=== PATIENT | female | born 1965 | race Caucasian/White ===

== ENCOUNTER 2024-11-25 18:07 | Emergency (ER) | payer MEDICAID, SELFPAY ==
[2024-11-25] VITALS (7 sets, daily range): BP systolic 135–179; BP diastolic 75–98; PULSE 72–87; RESP 12–19; TEMP 36.7–36.8; O2SAT 96–100; BMI 48.7
[2024-11-25 20:22] LABS: Basophils % 0.5 %; Eosinophils # 0.2 10^3/uL (0.0-0.8); Eosinophils % 2.6 %; Hematocrit 24.1 % (36-47); Lymphocytes # 1.9 10^3/uL (0.8-4.8); Lymphocytes % 23.8 %; Mean Corpuscular HGB Conc 24.1 g/dL (30-55); Mean Corpuscular Volume 70.7 fl (85-98); Mean Platelet Volume 11.4 fL (7.4-10.4); Monocytes # 0.8 10^3/uL (0.2-0.9); Monocytes % 9.3 %; Neutrophils # 5.08 10^3/uL (1.8-7.7); Neutrophils % 63.2 %; Nucleated Red Blood Cells % 0.2 %; Platelet Count 301 10^3/cmm (157-399); Red Blood Count 3.41 10^6/uL (3.85-5.65); Red Cell Distribution Width 19.3 % (12.1-15.1); White Blood Count 8.04 10^3/uL (3.29-11.43)
--- NOTE | 2024-11-25 20:39 | ED_ITS ---
HPI - Recheck/Abnormal Lab/Rx 2 General: Chief Complaint: Recheck/Abnormal Lab/Rx Stated Complaint: [place] sent for fluids Time Seen by Provider: 11/25/24 20:34 History of Present Illness: Patient sent in by her PCP due to concerns for anemia. Patient her lab drawn earlier today and her hemoglobin is 5.8. Patient thought she was in menopause 5 years ago when she did not have a period for over 1 year. But then her periods started coming back irregularly but heavy. Patient's had heavy periods at least the last 6 months consistently with bleeding for last 30 days. Patient does states she gets tired fatigued winded easily. Patient has no other complaints or concerns at this time. Related Data Previous Rx's ?Medication ?Instructions ?Recorded ferrous sulfate 324 mg (65 mg 324 mg PO DAILY #90 tabs 11/26/24 iron) tablet,delayed release Allergies Allergy/AdvReac Type Severity Reaction Status Date / Time No Known Allergies Allergy Verified 11/25/24 18:11 Review of Systems 2 General: Reports: 10 or more systems reviewed and unremarkable except in HPI and below [facility] ED 2 Female Reproductive History: Date of last menstrual period: 11/13/24 Physical Exam 2 Const: COMMON NORMALS: no acute distress, average body habitus, patient oriented x3, no limitations, healthy appearing, alert and well nourished HENMT: COMMON NORMALS: normocephalic, atraumatic, hearing grossly normal bilaterally, external ears normal, Normal external nose present, moist oral mucous membranes and oropharynx normal HEAD & SCALP: normocephalic and atraumatic NOSE: Normal external nose present EXTERNAL EAR: Yes external ears normal Eye: COMMON NORMALS: Equal, round and reactive pupils present, EOMs intact bilaterally, conjunctivae normal and no scleral icterus CONJUNCTIVA: Yes conjunctivae normal PUPIL: Yes Equal, round and reactive pupils present Neck/C-Spine: COMMON NORMALS: full ROM, no lymphadenopathy, supple, no meningeal signs, no JVD and Thyroid normal THYROID: Thyroid normal Chest: COMMONS NORMALS: normal inspection of the chest and normal palpation of entire chest wall Resp: COMMON NORMALS: normal respiratory effort, No retractions, No use of accessory muscles and clear to auscultation bilaterally AUSCULTATION: clear to auscultation bilaterally Cardio: COMMON NORMALS: no JVD, regular rate, regular rhythm, S1 normal heart sound present, S2 normal heart sound present, No gallops present (Cardio), No clicks present (Cardio), No murmurs present (Cardio) and No rub (Cardio) R ATE: regular rate RHYTHM: regular rhythm HEART SOUNDS: S1 normal heart sound present and S2 normal heart sound present GI: COMMON NORMALS: Normal to inspection, nondistended, normoactive bowel sounds present, Soft to palpation, non-tender, No hepatosplenomegaly present and no masses PALPATION: Yes Soft to palpation and Yes No hepatosplenomegaly present Neuro: COMMON NORMALS: patient oriented x3 SENSORIUM/ORIENTATION: Yes alert MENINGEAL SIGNS: Yes no meningeal signs Course 2 Vital Signs: Vital signs: Vital Signs Temperature 98.2 F 11/26/24 00:10 Pulse Rate 74 11/26/24 00:41 Respiratory Rate 15 11/26/24 00:41 Blood Pressure 147/99 11/26/24 00:41 Pulse Oximetry 98 11/26/24 00:41 Oxygen Delivery Me thod Room Air 11/26/24 00:41 MDM - Recheck/Abnormal Lab/Rx Medical Decision Making Patient hemoglobin come back at 5.8, patient received 2 units of packed red blood cells. Iron indices shows patient is iron deficient 2 patient will be placed on iron, referred to PAPER SAMPLE CLERK for heavy postmenopausal bleeding. Medical Records I reviewed the patient's medical records. Lab Data I reviewed the patient's lab results. 11/25/24 19:54 Laboratory Results WBC 8.04 10^3/uL (3.29-11.43) 11/25/24 19:54 RBC 3.41 10^6/uL (3.85-5.65) L 11/25/24 19:54 Hgb 5.80 g/dL (11.27-16.99) L* 11/25/24 19:54 Hct 24.1 % (36-47) L 11/25/24 19:54 MCV 70.7 fl (85-98) L 11/25/24 19:54 MCH 17.0 pg (27-33) L 11/25/24 19:54 MCHC 24.1 g/dL (30-55) L 11/25/24 19:54 RDW 19.3 % (12.1-15.1) H 11/25/24 19:54 Plt Count 301 10^3/cmm (157-399) 11/25/24 19:54 MPV 11.4 fL (7.4-10.4) H 11/25/24 19:54 Neut % (Auto) 63.2 % 11/25/24 19:54 Lymph % (Auto) 23.8 % 11/25/24 19:54 [place] % (Auto) 9.3 % 11/25/24 19:54 Eos % (Auto) 2.6 % 11/25/24 19:54 Baso % (Auto) 0.5 % 11/25/24 19:54 Neut # (Auto) 5.08 10^3/uL (1.8-7.7) 11/25/24 19:54 Lymph # (Auto) 1.9 10^3/uL (0.8-4.8) 11/25/24 19:54 [place] # (Auto) 0.8 10^3/uL (0.2-0.9) 11/25/24 19:54 Eos # (Auto) 0.2 10^3/uL (0.0-0.8) 11/25/24 19:54 Baso # (Auto) 0.0 10^3/uL (0.0-0.1) 11/25/24 19:54 Nucleated RBC % (auto) 0.2 % 11/25/24 19:54 Nucleated RBCs # 0.0 /100WBC 11/25/24 19:54 Iron 14 ug/dL (37-145) L 11/25/24 19:54 TIBC 452 mcg/dl 11/25/24 19:54 % Saturation 3.0 % (20-50) L 11/25/24 19:54 Unsat Iron Binding 438 ug/dL (112-347) H 11/25/24 19:54 Ferritin 11 ng/mL (15-150) L 11/25/24 19:54 Blood Type A Positive 11/25/24 20:40 Rho(D) Type Rh positive 11/25/24 20:40 Antibody Screen Negative 11/25/24 20:40 Crossmatch See Detail 11/25/24 20:40 All radiology interpretation(s) finalized by discharge Discharge Plan Discharge Patient Disposition: Home Clinical Impression: Anemia requiring transfusions, DUB (dysfunctional uterine bleeding) Iron (Fe) deficiency anemia Qualifiers: Iron deficiency anemia type: chronic blood loss Qualified Code(s): D50.0 - Iron deficiency anemia secondary to blood loss (chronic) Condition: Stable Prescriptions: New ferrous sulfate 324 mg (65 mg iron) tablet,delayed release (DR/EC) 324 mg PO DAILY Qty: 90 0RF Discharge Orders: Discharge ED (Routine); Ordered 11/26/24 Ordered By: Ok Hawkins Patient Instructions: Anemia (ED), Blood Transfusion (DC), Abnormal (Dysfunctional) Uterine Bleeding (ED) Activity Restrictions/Additional Instructions: You are found to be severely anemic, your cells are small and your iron level is low. You will be prescribed iron to take to boost these levels. You have been transfused 2 units of blood. He had been referred to PAPER SAMPLE CLERK to help evaluate the cause of your substantial bleeding. The quality management coordinator should be calling you during business hours to arrange just follow-up. Please follow-up with family practice within next 7 days for reevaluation and rechecking of your hemoglobin. Thank you for choosing [facility] for your healthcare needs today. Please realize that you were seen in the emergency department and that we are providing you with an emergency medical screening exam and this may not be a complete and all exclusive of all testing and/or medical workup we may need to determine your element or severity of your illness. It is very important that you follow-up as instructed with your primary care provider or specialist for the additional evaluation and to discuss your medical treatment plan. You may return to the emergency department should you have concerns or if your condition changes or worsens in any way. Print Language: Danish Coding Level of Care Code ED Manager Primary Care for Savanah Luna
[2024-11-25 21:02] LABS: Ferritin 11 ng/mL (15-150); Iron 14 ug/dL (37-145); Total Iron Binding Capacity 452 mcg/dl; Unsaturated Iron Binding 438 ug/dL (112-347)
--- NOTE | 2024-11-25 22:43 | PC.NURSE ---
blood verified with second nurse, diane
[2024-11-26] VITALS (10 sets, daily range): BP systolic 132–166; BP diastolic 70–99; PULSE 71–80; RESP 14–22; TEMP 36.6–36.9; O2SAT 91–98
--- NOTE | 2024-11-26 00:57 | PC.NURSE ---
Assumed care from Vinod NEAL at this time.
--- NOTE | 2024-11-26 01:47 | PC.NURSE ---
Blood transfusion verified with Effie NEAL.
[2024-11-26] MEDS: sodium chloride 0.9% 100 mL Bag 50 ML IV (01:51)
--- NOTE | 2024-11-26 08:51 | DCPLANNER ---
messaged womens for er f/u
== END 2024-11-26 03:38 | disposition home or self-care (01) ==
PROVIDERS: Emergency Medicine; Emergency Provider Emergency Medicine
DX: D64.9 Anemia, unspecified (principal); N93.8 Other specified abnormal uterine and vaginal bleeding; D50.0 Iron deficiency anemia secondary to blood loss (chronic)
CPT/HCPCS: 36415; 36430; 82728; 83540; 83550; 85025; 86850; 86900; 86920; 99284; P9016

== ENCOUNTER 2024-12-06 10:26 | Outpatient (CLI) | payer MEDICAID, SELFPAY ==
--- NOTE | 2024-12-06 10:32 | US_ITS ---
WS: [id number] Exam: US pelvic complete* [id number] Date/Time of Exam: 12/06/2024 10:54 AM Reason For Exam: DYSFUNCTIONAL UTERINE BLEEDING There is mild uterine enlargement. The uterus measures 11.5 cm in greatest length and approximately 6.7 cm in transverse dimension. The endometrium is abnormally thickened with heterogeneous echotexture. The possibility of endometrial neoplasm must be considered and biopsy would be indicated. The ovari es are unremarkable as visualized. The LEFT ovary measures 1.9 x 1 x 1.5 cm. The RIGHT ovary measures 1.6 x 1.1 x 1.9 cm. Endometrial thickness about 2 cm. US/US pelvic complete* [id number] IMPRESSION: 1. Abnormally thickened heterogeneous endometrium. Endometrial neoplasm is not excluded and biopsy would be indicated. 2. Mild uterine enlargement. 3. No adnexal mass or abnormal free fluid collection in the pelvis.
== END 2024-12-06 10:27 | disposition home or self-care (01) ==
PROVIDERS: PCP Family Medicine; Visit Provider Family Medicine
DX: N93.8 Other specified abnormal uterine and vaginal bleeding (principal); R93.89 Abnormal findings on diagnostic imaging of other specified body structures; N85.2 Hypertrophy of uterus
CPT/HCPCS: 76856

== ENCOUNTER 2024-12-30 05:56 | Day surgery (SDC) | payer MEDICAID, SELFPAY ==
[2024-12-30] VITALS (8 sets, daily range): BP systolic 125–179; BP diastolic 75–110; PULSE 86–103; RESP 14–18; TEMP 36.3–36.6; O2SAT 92–100; BMI 49.5
--- NOTE | 2024-12-30 05:29 | P.HP_ITS ---
Same Day Surgery H&P Indication for Procedure/HPI DATE OF PROCEDURE: December 30, 2024 CHIEF COMPLAINT/INDICATIONFOR SURGICAL PROCEDURE: abnormal uterine bleeding PREOP DIAGNOSIS: abnormal uterine bleeding PLANNED PROCEDURE: Operation Date: 12/30/24 08:10 Proposed Procedures p Hysteroscopy w/ Endometrial Sampling 43955, N95.0(Not Applicable) - Rafy Xavier am, MD s Poylpectomy(Not Applicable) - Rafy Garcia MD 59 y.o. with daily bleeding x four years Medications/Allergies* Allergies/Adverse Reactions Allergy/AdvReac Type Severity Reaction Status Date / Time No Known Allergies Allergy Verified 12/22/24 09:44 Pertinent History/Comorbid Conditions* Family History (Updated 12/22/24 @ 09:32 by Sary Braga RN) Diabetes Sister Hypertension Father Stroke Father Social History Smoking and tobacco/nicotine status: never used tobacco/nicotine Pertinent Exam Findings alert, oriented x 3, clear to auscultation bilaterally and regular rate & rhythm Pertinent Data Pelvic sono 12-06-24 uterus 11.5 x 6.7 cm Endometrium thickened and heterogeneous Normal ovaries Recommendations Surgery/Procedure today Coding Level of Care Code Acute Code for Chg Fwd Time Spent (min) 30
[2024-12-30] MEDS: sodium chloride 0.9% 1,000 ML 30 ML IV (06:46)
--- NOTE | 2024-12-30 06:51 | ANES.PREANE2 ---
Pre-Anesthetic Assessment Height/Weight: Height 1.68 m Weight 139.253 kg Temp Pulse Resp BP Pulse Ox O2 Del Method 97.9 F 91 17 179/110 95 Room Air 12/30/24 06:30 12/30/24 06:30 12/30/24 06:30 12/30/24 06:30 12/30/24 06:30 12/30/24 06:30 Preop Diagnosis: abnormal uterine bleeding Operation Date: 12/30/24 08:10 Proposed Procedures p Hysteroscopy w/ Endometrial Sampling 32411, N95.0(Not Applicable) - Rafy Garcia MD s Poylpectomy(Not Applicable) - Rafy Garcia MD Familial anesthetic complications: None Was Beta Ericka taken within 24 hours: N/A Was Clonidine taken within 24 hours: N/A Last intake: Intake Last Liquid Date 12/29/24 Last Liquid Time 00:00 Last Solid Date 12/29/24 Last Solid Time 15:00 Social No alcohol and No tobacco Exam alert, oriented x 3, clear to auscultation bilaterally and regular rate & rhythm Airway Submandibular: Other (excess tissue) Mallampati: Class IV Dentition: chipped (molar) CV/HEM Anemia (s/p 2 units last month and iron supplements, states she is feeling better since, less fatigue) Metabolic Morbid Obesity Anesthetic Plan ASA status: 2 Anesthesia: General Risk of > 500 ml blood loss (7ml/kg in children): No Medications/Allergies Home Medications ?Medication ?Instructions ?Recorded ?Confirmed ?Last Taken ?Type ferrous sulfate 324 mg (65 mg 324 mg PO DAILY #90 tabs 11/26/24 12/29/24 12/29/24 Rx iron) tablet,delayed release Allergies Allergy/AdvReac Type Severity Reaction Status Date / Time No Known Allergies Allergy Verified 12/22/24 09:44 Current Medications Generic Name Dose Route Start Last Admin Trade Name Freq PRN Reason Stop Dose Admin Sodium Chloride 1,000 mls @ 30 mls/hr 12/30/24 06:15 12/30/24 06:46 Sodium Chloride 0.9% IV 12/31/24 06:14 30 mls/hr .Q24H NABIL Administration PFSH Anesthesia Family History Father Hypertension Stroke Sister Diabetes Social History Smoking and tobacco/nicotine status: never used tobacco/nicotine Data Anesthesia Cardiac Studies: No Data to Display
[2024-12-30 07:10] LABS: Basophils % 0.7 %; Eosinophils # 0.1 10^3/uL (0.0-0.8); Eosinophils % 1.8 %; Hematocrit 31.3 % (36-47); Lymphocytes # 1.2 10^3/uL (0.8-4.8); Lymphocytes % 21.8 %; Mean Corpuscular HGB Conc 26.2 g/dL (30-55); Mean Corpuscular Hemoglobin 19.7 pg (27-33); Mean Corpuscular Volume 75.1 fl (85-98); Mean Platelet Volume 10.5 fL (7.4-10.4); Monocytes # 0.5 10^3/uL (0.2-0.9); Monocytes % 8.9 %; Neutrophils # 3.73 10^3/uL (1.8-7.7); Neutrophils % 66.6 %; Nucleated Red Blood Cells % 0 %; Platelet Count 273 10^3/cmm (157-399); Red Blood Count 4.17 10^6/uL (3.85-5.65); Red Cell Distribution Width 22.1 % (12.1-15.1)
--- NOTE | 2024-12-30 07:30 | W.PM.OPSUD ---
Surgery/Procedure H&P Update DATE OF PROCEDURE: December 30, 2024 DATE H&P PERFORMED: 12/17/24 H&P UPDATE INFORMATION: I have reviewed H&P completed within last 30 days, I have examined patient prior to procedure and No changes to prior documentation PREOP DIAGNOSIS: abnormal uterine bleeding PLANNED PROCEDURE: Operation Date: 12/30/24 08:10 Proposed Procedures p Hysteroscopy w/ Endometrial Sampling 13932, N95.0(Not Applicable) - Rafy Garcia MD s Poylpectomy(Not Applicable) - Rafy Garcia MD
--- NOTE | 2024-12-30 08:40 | PM.OP ---
Operative Report Date of procedure: December 30, 2024 Pre-op diagnosis: abnormal uterine bleeding Post-op diagnosis: same Post-op findings: Cervix high up in vaginal canal Unable to reach with hysteroscope Unable to perform hysteroscopy Uterus sounded to 8 cm Small amount of endometrial tissue obtained using curette Procedure done: Curettage of uterus Implants: none Specimens removed/disposition: endometrial curettings, sent to pathology Surgeon: Rafy Garcia MD Anesthesia: General Estimated blood loss (mL): 0 Complications: none Findings: Cervix high up in vaginal canal Unable to reach with hysteroscope Unable to perform hysteroscopy Uterus sounded to 8 cm Small amount of endometrial tissue obtained using curette Condition: stable Disposition: PACU Brief History: 59 y.o. with abnormal uterine bleeding Procedure: Informed consent signed. Patient was taken to the operating room. Anesthesia was induced. Patient was placed in dorsolithotomy position, prepped and draped for hysteroscopy. A bivalve speculum was placed in the vagina. Due to the patient?s body habitus, the cervix was noted to be high up in the vaginal canal. The cervix could not be reached with the hysteroscope. The cervix was dilated with Hegar dilators. The uterus was sounded to 8 cm. A sharp curette was then used to obtain endometrial curettings. Small amount of endometrial tissue was obtained and sent to pathology. All instruments were then removed. No bleeding was seen. The patient was placed supine and awakened, then taken to PACU in good condition. Postop condition: stable EBL: none Sponge and instruments counts were normal x 2 Complications: none
[2024-12-30 08:56] LABS: OR HCG Qualitative Urine Negative (Negative)
[2024-12-30] MEDS: ketorolac 30 mg/mL INJ IVP (10:10)
--- NOTE | 2024-12-30 10:40 | ANE.PACU2 ---
Inpatient post-anesthesia follow up: Airway intact: Yes Vital signs: Temperature 97.4 F Pulse Rate 89 Respiratory Rate 17 Blood Pressure 139/83 Pulse Oximetry 98 Oxygen Delivery Me thod Room Air Oxygen Flow Rate 8 Fraction of Inspir ed Oxygen Hydration adequate: Yes Nausea and vomiting: No Pain level: 1 Mental status: Baseline
== END 2024-12-30 10:40 | disposition home or self-care (01) ==
PROVIDERS: Anesthesiology; PCP Family Medicine; Visit Provider Obstetrics & Gynecology
PROC: (CPT 58120; 2024-12-30 08:00)
DX: N85.01 Benign endometrial hyperplasia (principal); N95.0 Postmenopausal bleeding; E66.01 Morbid (severe) obesity due to excess calories; Z68.42 Body mass index [BMI] 45.0-49.9, adult
CPT/HCPCS: 58120; 36415; 81025; 85025; 88305; J0330; J1100; J1885; J2250; J2405; J2704; J3010; J3490; J7030; J9999

== ENCOUNTER 2025-05-06 20:16 | Emergency (ER) | payer MEDICAID, SELFPAY ==
[2025-05-06 20:34] VITALS: BP 169/84; PULSE 109; RESP 16; TEMP 38.4; O2SAT 98; BMI 44.2
--- NOTE | 2025-05-06 21:40 | XRR_ITS ---
PROCEDURE INFORMATION: Exam: XR Chest Exam date and time: 05/06/2025 9:43 PM Age: 59 years old Clinical indication: C/O fever. Currently on chemo for endometrial cancer. TECHNIQUE: Imaging protocol: Radiologic exam of the chest. Views: 1 view. COMPARISON: No relevant prior studies available. FINDINGS: Lungs: Diffuse increase in interstitial lung markings. No focal consolidation. Pleural spaces: Unremarkable. No pleural effusion. No pneumothorax. Heart/Mediastinum: Unremarkable. No cardiomegaly. Bones/joints: Diffuse degenerative change of the visualized osseous structures XR/XR chest 1V portable [id number] IMPRESSION: Diffuse increase in interstitial lung markings without focal consolidation.
--- NOTE | 2025-05-06 21:40 | ECG_ITS ---
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 Measurements Intervals [place] Rate: 97 P: 28 CO: 179 QRS: 7 QRSD: 94 T: 29 QT: 318 QTc: 406 Interpretive Statements SINUS RHYTHM LOW QRS VOLTAGE IN PRECORDIAL LEADS [QRS DEFLECTION < 1.0 mV IN CHEST LEADS] POSSIBLE ANTERIOR MYOCARDIAL INFARCTION , PROBABLY OLD [30 ms Q WAVE IN V3/V4, OR R < 0.2 mV IN V4] No previous ECG available for comparison Electronically Signed On 05-07-2025 00:15:10 CDT by Lele Hardwick M.D. [email or web address]
--- NOTE | 2025-05-06 21:41 | W.ED.FEVER ---
HPI - Fever General: Chief Complaint: Fever Stated Complaint: Fever Chemo 04/29/25 Time Seen by Provider: 05/06/25 21:19 History of Present Illness: Generally well-appearing 59-year-old female who has received 2 rounds of chemotherapy for recent diagnosis of cancer seen for fever and flulike symptoms. She states that she felt somewhat weak and achy throughout her body today. She denies cough, congestion, headache, chest pain, shortness of breath, abdominal pain, dysuria, frequency, though she has had some loose stools. Appetite remains robust. She has not taken any antipyretic medication. Related Data Previous Rx's ?Medication ?Instructions ?Recorded ferrous sulfate 324 mg (65 mg 324 mg PO DAILY #90 tabs 11/26/24 iron) tablet,delayed release Allergies Allergy/AdvReac Type Severity Reaction Status Date / Time No Known Allergies Allergy Verified 05/06/25 20:40 [facility] ED PFSH: Family History Father Hypertension Stroke Sister Diabetes Social History Smoking and tobacco/nicotine status: never used tobacco/nicotine Physical Exam Const: COMMON NORMALS: no acute distress, patient oriented x3 and alert HENMT: COMMON NORMALS: normocephalic and atraumatic HEAD & SCALP: normocephalic and atraumatic Eye: COMMON NORMALS: Equal, round and reactive pupils present, EOMs intact bilaterally and no scleral icterus PUPIL: Yes Equal, round and reactive pupils present Resp: COMMON NORMALS: normal respiratory effort and No retractions Cardio: OTHER: tachycardic, normal rhythm GI: COMMON NORMALS: Normal to inspection, nondistended, normoactive bowel sounds present, Soft to palpation and non-tender PALPATION: Yes Soft to palpation Neuro: COMMON NORMALS: patient oriented x3 SENSORIUM/ORIENTATION: Yes alert Skin: COMMON NORMALS: no rashes or lesions noted GENERAL SKIN EXAM: no rashes or lesions noted Course Vital Signs: Vital signs: Vital Signs Temperature 99.7 F H 05/07/25 00:30 Pulse Rate 85 05/07/25 00:30 Respiratory Rate 17 05/07/25 00:30 Blood Pressure 143/75 05/07/25 00:30 Pulse Oximetry 94 05/07/25 00:30 Oxygen Delivery Me thod Nasal Cannula 05/07/25 00:30 Oxygen Flow Rate 2 05/07/25 00:30 MDM - Fever Medical Decision Making In summary, patient is a 69-year-old female undergoing chemotherapy for endometrial cancer seen for fever and tachycardia. Though she denies flank or abdominal pain, CT scan shows a 12 mm proximal stone obstructing the left ureter causing hydronephrosis as well as perinephric stranding consistent with pyelonephritis. Urinalysis shows likely cause of early sepsis. She was started on cefepime and IV fluids and observed in the emergency department over several hours. She will be transferred to [facility] for definitive management as there is no urology coverage at this facility. Patient is agreeable to the plan Lab Data 05/06/25 21:30 05/06/25 21:30 Radiology Impressions Chest X-Ray 05/06/25 21:40 IMPRESSION: Diffuse increase in interstitial lung markings without focal consolidation. Abdomen/Pelvis CT 05/07/25 01:44 IMPRESSION: 1. Left UPJ 14 mm calculus with significant obstructive features. Additional nonobstructive right nephrolithiasis. 2. Colonic diverticulosis. 3. Mild splenomegaly. 4. Left inguinal hernia with trace pelvic free fluid and trace fluid in the hernia sac. 5. Additional chronic findings as described. Laboratory Results WBC 3.45 10^3/uL (3.29-11.43) 05/06/25 21:30 RBC 4.70 10^6/uL (3.85-5.65) 05/06/25 21:30 Hgb 9.90 g/dL (11.27-16.99) L 05/06/25 21:30 Hct 34.6 % (36-47) L 05/06/25 21:30 MCV 73.6 fl (85-98) L 05/06/25 21: MCH 21.1 pg (27-33) L 05/06/25 21: MCHC 28.6 g/dL (30-55) L 05/06/25 21: RDW 22.1 % (12.1-15.1) H 05/06/25 21:30 Plt Count 153 10^3/cmm (157-399) L 05/06/25 21: MPV Not Reportable 05/06/25 21:30 Neut % (Auto) 78.6 % 05/06/25 21:30 Lymph % (Auto) 13.9 % 05/06/25 21:30 [place] % (Auto) 4.6 % 05/06/25 21: Eos % (Auto) 2.0 % 05/06/25 21:30 Baso % (Auto) 0.3 % 05/06/25 21:30 Neut # (Auto) 2.71 10^3/uL (1.8-7.7) 05/06/25 21: Lymph # (Auto) 0.5 10^3/uL (0.8-4.8) L 05/06/25 21:30 [place] # (Auto) 0.2 10^3/uL (0.2-0.9) 05/06/25 21: Eos # (Auto) 0.1 10^3/uL (0.0-0.8) 05/06/25 21: Baso # (Auto) 0.0 10^3/uL (0.0-0.1) 05/06/25: Nucleated RBC % (auto) 0 % 05/06/25 21: Nucleated RBCs # 0.0 /100WBC 05/06/25 21:30 Sodium 134 mmol/L (136-145) L 05/06/25 21: Potassium 3.6 mmol/L (3.5-5.1) 05/06/25 21: Chloride 93 mmol/L (98-107) L 05/06/25 21: Carbon Dioxide 26 mmol/L (22-29) 05/06/25 21: Anion Gap 18.6 (5-19) 05/06/25 21: BUN 20 mg/dL (6-20) 05/06/25: Creatinine 1.5 mg/dL (0.5-0.9) H 05/06/25 21:30 GFR Calculation 35.7 mL/min (90-130) L 05/06/25 21: Glucose 159 mg/dL (65-115) H 05/06/25 21: Calculated Osmolality 284 mOsm/kg (285-295) L 05/06/25 21: Lactic Acid 1.6 mmol/L (0.5-2.2) 05/06/25:30 Calcium 9.4 mg/dL (8.5-10.5) 05/06/25 21: Total Bilirubin 1.0 mg/dL (0.15-1.2) 05/06/25 21: AST 27 U/L (0-32) 05/06/25 21:30 ALT 34 U/L (0-33) H 05/06/25 21:30 Alkaline Phosphatase 72 U/L (35-105) 05/06/25 21: Total Protein 7.3 g/dL (6.6-8.7) 05/06/25 21: Albumin 4.2 g/dL (3.5-5.2) 05/06/25: Globulin 3.1 g/dL (1.3-4.6) 05/06/25 21: Urine Color Yellow (Yellow) 05/06/25 23:00 Urine Appearance Cloudy (CLEAR) A 05/06/25 23:00 Urine pH 6.0 (5-7) 05/06/25 23:00 Ur Specific [place] 1.016 (1.005-1.030) 05/06/25 23:00 Urine Protein 2+ (Negative) A 05/06/25 23:00 Urine Glucose (UA) Negative (Normal) 05/06/25 23:00 Urine Ketones Trace (Negative) 05/06/25 23:00 Urine Blood 1+ (Negative) A 05/06/25 23:00 Urine Nitrate Positive (Negative) A 05/06/25 23:00 Urine Bilirubin Negative (Negative) 05/06/25 23:00 Urine Urobilinogen 1.0 mg/dL (Negative) 05/06/25 23:00 Ur Leukocyte Esterase 3+ (Negative) A 05/06/25 23:00 Urine RBC 6-10 /hpf (0-2) 05/06/25 23:00 Urine WBC >100 /hpf (0-5) H 05/06/25 23:00 Ur Squamous Epith Cells 6-10 /hpf (0-5) 05/06/25 23:00 Amorphous Sediment Not Reportable 05/06/25 23:00 Urine Bacteria 2+ /hpf (NONE) H 05/06/25 23:00 Hyaline Casts 2.46 /lpf 05/06/25 23:00 Adenovirus (PCR) Not detected (NOT DETECT) 05/06/25 23:12 C. pneumoniae DNA (PCR) Not detected (NOT DETECT) 05/06/25 23:12 Coronavirus 229E (PCR) Not detected (NOT DETECT) 05/06/25 23:12 Human Metapneumovir PCR Not detected (NOT DETECT) 05/06/25 23:12 Influenza A (H1) PCR Not detected (NOT DETECT) 05/06/25 23:12 Influ A (H1/09) PCR Not detected (NOT DETECT) 05/06/25 23:12 Influenza A (H3) PCR Not detected (NOT DETECT) 05/06/25 23:12 Influenza Type A (PCR) Not detected (NOT DETECT) 05/06/25 23:12 Influenza Type B (PCR) Not detected (NOT DETECT) 05/06/25 23:12 M. pneumoniae (PCR) Not detected (NOT DETECT) 05/06/25 23:12 Parainfluenza 1 (PCR) Not detected (NOT DETECT) 05/06/25 23:12 Parainfluenza 2 (PCR) Not detected (NOT DETECT) 05/06/25 23:12 Parainfluenza 3 (PCR) Not detected (NOT DETECT) 05/06/25 23:12 Parainfluenza 4 (PCR) Not detected (NOT DETECT) 05/06/25 23:12 RSV Type A (PCR) Not detected (NOT DETECT) 05/06/25 23:12 RSV Type B (PCR) Not detected (NOT DETECT) 05/06/25 23:12 Entero/Rhino (PCR) Not detected (NOT DETECT) 05/06/25 23:12 SARS-CoV-2 (PCR) Not detected (NOT DETECT) 05/06/25 23:12 All radiology interpretation(s) finalized by discharge Discharge Plan Discharge Patient Disposition: Admitted As Inpatient Clinical Impression: Sepsis secondary to UTI Condition: Stable Coding Level of Care Code ED 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
[2025-05-06 21:50] VITALS: BP 109/69; PULSE 96; RESP 12; TEMP 37.5; O2SAT 95
[2025-05-06 21:51] LABS: Hematocrit 34.6 % (36-47); Hemoglobin 9.90 g/dL (11.27-16.99); Mean Corpuscular HGB Conc 28.6 g/dL (30-55); Mean Corpuscular Hemoglobin 21.1 pg (27-33); Mean Corpuscular Volume 73.6 fl (85-98); Nucleated Red Blood Cells % 0 %; Platelet Count 153 10^3/cmm (157-399); Red Blood Count 4.70 10^6/uL (3.85-5.65); White Blood Count 3.45 10^3/uL (3.29-11.43)
[2025-05-06 22:08] LABS: Alanine Aminotransferase 34 U/L (0-33); Albumin Level 4.2 g/dL (3.5-5.2); Alkaline Phosphatase 72 U/L (35-105); Anion Gap 18.6 (5-19); Aspartate Amino Transferase 27 U/L (0-32); Blood Urea Nitrogen 20 mg/dL (6-20); Calcium 9.4 mg/dL (8.5-10.5); Carbon Dioxide 26 mmol/L (22-29); Chloride 93 mmol/L (98-107); Creatinine Clr Calc Pharmacy 55.0460; Globulin 3.1 g/dL (1.3-4.6); Glucose 159 mg/dL (65-115); Lactic Sepsis W/Reflex 1.6 mmol/L (0.5-2.2); Osmolality Calculated 284 mOsm/kg (285-295); Potassium 3.6 mmol/L (3.5-5.1); Sodium 134 mmol/L (136-145); Total Protein 7.3 g/dL (6.6-8.7)
[2025-05-06 23:33] LABS: Add Urine Microscopic? YES; Glucose Urine UA Negative (Normal); Nitrate Urine Positive (Negative); Specific Gravity, Urine 1.016 (1.005-1.030)
[2025-05-07] VITALS (7 sets, daily range): BP systolic 130–147; BP diastolic 75–90; PULSE 84–92; RESP 17–20; TEMP 37.6; O2SAT 92–94
[2025-05-07] MEDS: cefepime 1,000 mg SDV 2000 MG IVP (00:37)
[2025-05-07 01:07] LABS: Coronavirus 229E,HKU1,NL63,OC4 Not Detected (NOT DETECT); Parainfluenza Virus Type 1 Not Detected (NOT DETECT); Parainfluenza Virus Type 2 Not Detected (NOT DETECT); Parainfluenza Virus Type 3 Not Detected (NOT DETECT); Parainfluenza Virus Type 4 Not Detected (NOT DETECT); SARS-COV-2 Not Detected (NOT DETECT)
--- NOTE | 2025-05-07 01:44 | CTR_ITS ---
PROCEDURE INFORMATION: Exam: CT Abdomen And Pelvis Without Contrast Exam date and time: 05/07/2025 1:57 AM Age: 59 years old Clinical indication: Fever and other: Hematuria; Prior surgery; Surgery date: 1-6 months; Surgery type: Hysterectomy; Fever with hematuria and UTI. Currently on chemotherapy for endometrial cancer. ; Additional info: Pyelo, making sure no obstructive component TECHNIQUE: Imaging protocol: Computed tomography of the abdomen and pelvis without contrast. Radiation optimization: All CT scans at this facility use at least one of these dose optimization techniques: automated exposure control; mA and/or kV adjustment per patient size (includes targeted exams where dose is matched to clinical indication); or iterative reconstruction. COMPARISON: US pelvic complete* [id number] 12/06/2024 10:57 AM RADIATION DOSE METRICS: Total DLP (mGy-cm): 1264.18 FINDINGS: Liver: Limited evaluation of the liver due to lack of IV contrast. Liver is enlarged with right hepatic lobe measuring 26.2 cm on coronal imaging. Gallbladder and biliary ducts: Gallbladder is largely contracted, limiting its evaluation. Pancreas: No evidence of pancreatitis. No ductal dilation. Spleen: Spleen is mildly enlarged. Adrenal glands: Adrenal glands are within expected limits. Kidneys and ureters: 14 mm calculus at the left UPJ with moderate hydronephrosis and significant perinephric stranding. 10 mm calculus at the lower pole of the right kidney. No ureteral stones or hydronephrosis on the right. Stomach and bowel: Colonic diverticulosis without diverticulitis. Small bowel is normal caliber with no obstruction. Appendix: No evidence of appendicitis. Intraperitoneal space: Trace pelvic free fluid, nonspecific. Vasculature: No abdominal aortic aneurysm. Lymph nodes: No pathologically enlarged lymph nodes by CT size criteria. Urinary bladder: Unremarkable as visualized. Reproductive: Prior hysterectomy. Bones/joints: Degenerative changes, but no acute osseous findings. Soft tissues: Fat containing left inguinal hernia with trace fluid. CT/CT kidney stone [id number] IMPRESSION: 1. Left UPJ 14 mm calculus with significant obstructive features. Additional nonobstructive right nephrolithiasis. 2. Colonic diverticulosis. 3. Mild splenomegaly. 4. Left inguinal hernia with trace pelvic free fluid and trace fluid in the hernia sac. 5. Additional chronic findings as described.
== END 2025-05-07 09:32 | disposition admitted as inpatient to this hospital (09) ==
PROVIDERS: Emergency Provider Student in an Organized Health Care Education/Training Program; PCP Family Medicine
DX: A41.9 Sepsis, unspecified organism (principal); N39.0 Urinary tract infection, site not specified; Z11.52 Encounter for screening for COVID-19; C54.1 Malignant neoplasm of endometrium
CPT/HCPCS: 71045; 74176; 80053; 81001; 83605; 85025; 87040; 87086; 87486; 87581; 87633; 93005; 96361; 96374; 99285; J0692; J7030; J9999

== ENCOUNTER 2025-08-25 14:17 | Outpatient (CLI) | payer MEDICAID, SELFPAY ==
--- NOTE | 2025-08-25 14:19 | MM_ITS ---
WS: [id number] BILATERAL SCREENING DIGITAL TOMOSYNTHESIS MAMMOGRAM WITH CAD HISTORY: SCREENING COMPARISON: None available. Bilateral CC and MLO views with tomosynthesis and synthetic mammography submitted. Computer aided detection analyzed. Breast composition: There are scattered areas of fibroglandular density. No suspicious masses, microcalcifications or architectural distortion. Bilateral intramammary lymph nodes. There are a few benign calcifications within each breast. MM/MM scr BI tomosynthesis [id number] IMPRESSION: BI-RADS: 2 - Benign. FOLLOW UP: 1 Year Follow-up
== END 2025-08-25 14:18 | disposition home or self-care (01) ==
LOC: RAD 14:17
PROVIDERS: PCP Family Medicine; Visit Provider Family Medicine
DX: Z12.31 Encounter for screening mammogram for malignant neoplasm of breast (principal); R92.323 Mammographic fibroglandular density, bilateral breasts; R92.1 Mammographic calcification found on diagnostic imaging of breast; R59.0 Localized enlarged lymph nodes
CPT/HCPCS: 77063; 77067